=== PATIENT | female | born 1930 | race Caucasian/White ===

== ENCOUNTER → 2017-01-31 | Outpatient (CLI) | payer MEDICARE, OTHER | END | disposition home or self-care (01) | LOC: PCVCCLINIC 14:52 | PROVIDERS: ATTEND Internal Medicine | DX: I48.91 Unspecified atrial fibrillation (principal); I50.9 Heart failure, unspecified | CPT/HCPCS: 93279 ==

== ENCOUNTER → 2017-05-09 | Outpatient (CLI) | payer MEDICARE ==
--- NOTE | 2017-05-10 13:00 | PCVCIMAG ---
APPROVED REPORT Indications Stenosis Doppler Spectral Velocity Analysis PSV / EDVPSV / EDV ECA (R) 85 / 5 cm/sECA (L) 72 / 6 cm/s dICA (R) 63 / 19 cm/sdICA (L) 74 / 23 cm/s Jose (R) 113 / 21 cm/smICA (L) 70 / 21 cm/s pICA (R) 121 / 24 cm/spICA (L) 43 / 11 cm/s Bulb (R) 56 / 13 cm/sBulb (L) 46 / 14 cm/s dCCA (R) 56 / 12 cm/sdCCA (L) 71 / 13 cm/s mCCA (R) 78 / 14 cm/smCCA (L) 85 / 14 cm/s Vert (R) 56 / 6 cm/sVert (L) 70 / 19 cm/s ICA/CCA 1.50ICA/CCA 1.04 Basic Measurements Blood Pressure: Pulses: Right Left RightLeft Brachial(Sitting) 104/[id number]/60mmHgTemporal Real Time B-Mode Imaging Vert. (R)AntegradeVert. (L)Antegrade Findings The right carotid bulb has moderate heterogeneous plaque. The right proximal internal carotid artery shows <40% stenosis. The right common carotid artery shows no significant stenosis. The right external carotid artery shows no significant stenosis. The left carotid bulb has moderate heterogeneous plaque. The left proximal internal carotid artery shows <40% stenosis. The left common carotid artery shows no significant stenosis. The left external carotid artery shows no significant stenosis. Conclusion 1. Right internal carotid artery stenosis (<40%) 2. Left internal carotid artery stenosis (<40%) 3. Antegrade vertebral flow
--- NOTE | 2017-05-10 17:21 | PCVCIMAG ---
APPROVED REPORT Study performed: 05/09/2017 14:07:46 EXAM: Comprehensive 2D, Doppler, and color-flow Echocardiogram Patient Location: Echo lab Status: routine Other Information Study Quality: Adequate Indications Aortic Valve Disease Atrial Fibrillation Pacemaker 2D Dimensions LVEF(%): 82.42 (>50%) IVSd: 11.25 (7-11mm)LVOT Diam: 18.48 (18-24mm) LVDd: 40.26 mm PWd: 10.98 (7-11mm)Ascending Ao: 28.94 (22-36mm) LVDs: 19.86 (25-40mm) Left Atrium: 45.28 (27-40mm) Aortic Root: 17.72 mm LV Single Plane 4CH: 54.30 % LV Single Plane 2CH: 50.26 %[place] LVEF: 52.28 % Volumes Left Atrial Volume (Systole) Single Plane 4CH: 114.09 mLSingle Plane 2CH: 111.52 mL LA ESV Index: 78.00 mL/m2 Aortic Valve AoV Peak Leif.: 3.97 m/s AO Peak Gr.: 64.71 mmHgLVOT Max P.85 mmHg AO Mean Gr.: 36.49 mmHgLVOT Mean P.86 mmHg AO V2 Mean: 2.74 m/sLVOT Max V: 1.13 m/s AO V2 VTI: 90.90 cmLVOT Mean V: 0.96 m/s ZONIA (VTI): 0.86 [id number] V1 VTI: 29.08 cm ZONIA Vmax: 0.76 cm2 AI Vmax: 3.07 m/sSV (LVOT): 77.98 mL AI [place]: 2.96 m/s2 AI PHT: 300.66 ms Mitral Valve MV E Max Leif.: 1.21 m/s MV PHT: 29.65 ms MVA (PHT): 7.42 cm2 IVRT: 83.04 ms TDI E/Lateral E': 8.07E/Medial E': 15.13 Medial E' Leif.: 0.08 m/s Lateral E' Leif.: 0.15 m/s Pulmonary Valve PV Peak Leif.: 0.79 m/sPV Peak Gr.: 2.52 mmHg Tricuspid Valve TR Peak Leif.: 2.88 m/s TR Peak Gr.: 33.26 mmHg TV Vmax: 1.29 m/sPA Pressure: 48.00 mmHg Left Ventricle The left ventricle is normal size. There is normal LV segmental wall motion. Mild concentric left ventricular hypertrophy. Left ventricular systolic function is normal. The left ventricular ejection fraction is within the normal range. LVEF is 50-55%. This study is not technically sufficient to allow evaluation of the LV diastolic function due to atrial fibrillation. Right Ventricle The right ventricle is normal size. The right ventricular systolic function is normal. Atria Left atrium is severely dilated. Right atrium is severely dilated. Pacemaker lead is present in the right atrium. Aortic Valve Aortic valve is trileaflet with heavy calcification. There is moderate aortic stenosis and regurgitation. Moderate aortic regurgitation Severe aortic stenosis. Peak aortic valve gradient is 63mmHg and the mean gradient is 36.5 mmHg. Mitral Valve Moderate mitral annular calcification. The mitral valve leaflets are mildly thickened and calcified Moderate mitral regurgitation No evidence of mitral valve stenosis. Tricuspid Valve The tricuspid valve is normal in structure. Severe tricuspid regurgitation with a PA pressure of 48 mmHg. Pulmonic Valve The pulmonary valve is normal in structure. Moderate pulmonic regurgitation. Great Vessels The aortic root is normal in size. The ascending aorta is normal in size. IVC is normal in size and collapses with >50% inspiration The pulmonary artery is normal. Pericardium There is no pericardial effusion. There is no pleural effusion. <Conclusion> Left ventricular systolic function is normal. There is normal LV segmental wall motion. LVEF is 55-60%. Both atria are severely dilated. Aortic valve is trileaflet with heavy calcification. There is severe aortic stenosis and moderate regurgitation. Peak aortic valve gradient is 63mmHg and the mean gradient is 36.5 mmHg. Moderate mitral annular calcification and leaflets are mildly thickened and calcified Moderate mitral regurgitation Severe tricuspid regurgitation with a PA pressure of 48 mmHg. There is no pericardial effusion. Pacing wires in right heart
== END | disposition home or self-care (01) ==
LOC: PCVCIMAG 13:00
PROVIDERS: ATTEND Internal Medicine
DX: I35.1 Nonrheumatic aortic (valve) insufficiency (principal); I34.0 Nonrheumatic mitral (valve) insufficiency; I37.1 Nonrheumatic pulmonary valve insufficiency; I07.1 Rheumatic tricuspid insufficiency; I65.23 Occlusion and stenosis of bilateral carotid arteries; I48.2 Chronic atrial fibrillation; I25.10 Atherosclerotic heart disease of native coronary artery without angina pectoris; I50.32 Chronic diastolic (congestive) heart failure; I11.0 Hypertensive heart disease with heart failure; E78.5 Hyperlipidemia, unspecified; M19.90 Unspecified osteoarthritis, unspecified site; M81.0 Age-related osteoporosis without current pathological fracture; E03.9 Hypothyroidism, unspecified; Z95.0 Presence of cardiac pacemaker; Z79.01 Long term (current) use of anticoagulants; Z87.891 Personal history of nicotine dependence; Z79.82 Long term (current) use of aspirin; Z95.5 Presence of coronary angioplasty implant and graft
CPT/HCPCS: 80061; 93005; 93306; 93880; G0463

== ENCOUNTER → 2017-08-14 | Outpatient (CLI) | payer MEDICARE | END | disposition home or self-care (01) | LOC: PCVCCLINIC 15:17 | PROVIDERS: ATTEND Internal Medicine | DX: I48.2 Chronic atrial fibrillation (principal); I25.10 Atherosclerotic heart disease of native coronary artery without angina pectoris; I50.32 Chronic diastolic (congestive) heart failure; E78.5 Hyperlipidemia, unspecified; Z95.0 Presence of cardiac pacemaker; Z79.01 Long term (current) use of anticoagulants | CPT/HCPCS: 93279 ==

== ENCOUNTER → 2017-09-13 | Outpatient (CLI) | payer MEDICARE | END | disposition home or self-care (01) | LOC: PCVCCLINIC 11:09 | PROVIDERS: ATTEND Internal Medicine | DX: I48.2 Chronic atrial fibrillation (principal); I50.32 Chronic diastolic (congestive) heart failure; Q25.3 Supravalvular aortic stenosis; Z95.0 Presence of cardiac pacemaker | CPT/HCPCS: 93279 ==

== ENCOUNTER → 2017-10-31 | Outpatient (CLI) | payer MEDICARE | END | disposition home or self-care (01) | LOC: PCVCCLINIC 15:00 | PROVIDERS: ATTEND Internal Medicine | DX: I25.10 Atherosclerotic heart disease of native coronary artery without angina pectoris (principal); I50.32 Chronic diastolic (congestive) heart failure; I35.0 Nonrheumatic aortic (valve) stenosis; I48.2 Chronic atrial fibrillation; E78.5 Hyperlipidemia, unspecified; J47.9 Bronchiectasis, uncomplicated; Z79.01 Long term (current) use of anticoagulants; Z87.891 Personal history of nicotine dependence; Z79.82 Long term (current) use of aspirin; Z79.899 Other long term (current) drug therapy | CPT/HCPCS: 80061; 93005; G0463 ==

== ENCOUNTER → 2018-01-24 | Outpatient (CLI) | payer MEDICARE | END | disposition home or self-care (01) | LOC: PCVCCLINIC 11:00 | DX: I11.0 Hypertensive heart disease with heart failure (principal); I50.32 Chronic diastolic (congestive) heart failure; E03.9 Hypothyroidism, unspecified; J44.9 Chronic obstructive pulmonary disease, unspecified; I25.10 Atherosclerotic heart disease of native coronary artery without angina pectoris; I48.2 Chronic atrial fibrillation; E78.5 Hyperlipidemia, unspecified; Z79.01 Long term (current) use of anticoagulants; Z87.891 Personal history of nicotine dependence; Z95.0 Presence of cardiac pacemaker | CPT/HCPCS: 93279 ==

== ENCOUNTER → 2018-04-30 | Outpatient (CLI) | payer MEDICARE | END | disposition home or self-care (01) | LOC: PCVCCLINIC 15:35 | DX: I25.10 Atherosclerotic heart disease of native coronary artery without angina pectoris (principal); I50.32 Chronic diastolic (congestive) heart failure; I35.0 Nonrheumatic aortic (valve) stenosis; I48.2 Chronic atrial fibrillation; I65.23 Occlusion and stenosis of bilateral carotid arteries; E78.5 Hyperlipidemia, unspecified; J47.9 Bronchiectasis, uncomplicated; Z87.891 Personal history of nicotine dependence; Z79.82 Long term (current) use of aspirin; Z79.899 Other long term (current) drug therapy; Z88.8 Allergy status to other drugs, medicaments and biological substances | CPT/HCPCS: 80061; 93005; 93279; G0463 ==

== ENCOUNTER → 2018-10-29 | Outpatient (CLI) | payer MEDICARE ==
--- NOTE | 2018-10-29 14:32 | PCVCIMAG ---
APPROVED REPORT Study performed: 10/29/2018 13:09:14 EXAM: Comprehensive 2D, Doppler, and color-flow Echocardiogram Patient Location: Echo lab Status: routine BSA: 1.41 HR: 72 bpmBP: 116/64 mmHg Rhythm: Pacemaker Indications Atrial Fibrillation Pacemaker CAD severe aortic stenosis 2D Dimensions IVSd: 12.70 (7-11mm)LVOT Diam: 19.19 (18-24mm) LVDd: 39.24 mm PWd: 12.30 (7-11mm)Ascending Ao: 34.41 (22-36mm) LVDs: 28.12 (25-40mm) Left Atrium: 53.20 (27-40mm) Aortic Root: 32.93 mm Volumes Left Atrial Volume (Systole) Single Plane 4CH: 126.24 mLSingle Plane 2CH: 146.94 mL LA ESV Index: 98.00 mL/m2 Aortic Valve AoV Peak Leif.: 6.32 m/s AO Peak Gr.: 159.99 mmHgLVOT Max P.86 mmHg AO Mean Gr.: 87.65 mmHgLVOT Mean P.90 mmHg AO V2 Mean: 4.34 m/sLVOT Max V: 0.91 m/s AO V2 VTI: 159.69 cmLVOT Mean V: 0.65 m/s ZONIA (VTI): 0.38 [id number] V1 VTI: 20.99 cm ZONIA Vmax: 0.42 cm2 AI Vmax: 4.37 m/sSV (LVOT): 60.68 mL AI [place]: 3.77 m/s2 AI PHT: 335.86 ms Pulmonary Valve PV Peak Leif.: 1.05 m/sPV Peak Gr.: 4.38 mmHg Pulmonary Vein P Vein S: 0.27 m/s P Vein D: 0.37 m/s P Vein S/D Ratio: 0.73 Tricuspid Valve TR Peak Leif.: 2.77 m/s TR Peak Gr.: 30.66 mmHg Left Ventricle The left ventricle is normal size. There is normal LV segmental wall motion. Mild concentric left ventricular hypertrophy. Left ventricular systolic function is normal. The left ventricular ejection fraction is within the normal range. LVEF is 55%. This study is not technically sufficient to allow evaluation of the LV diastolic function due to atrial fibrillation. Right Ventricle Right ventricle is dilated. The right ventricular systolic function is normal. Atria Left atrium is severely dilated. Right atrium is severely dilated. Aortic Valve The aortic valve is severely calcified. Mild-moderate aortic regurgitation. There is critically severe valvular aortic stenosis. Calculated aortic valve area is .4 cm2 with maximum pressure gradient of 160 mmHg and mean pressure gradient of 88 mmHg. Mitral Valve Mild mitral annular calcification Moderate mitral regurgitation. No evidence of mitral valve stenosis. Tricuspid Valve The tricuspid valve is normal in structure. Severe tricuspid regurgitation with PAP of 46 mmHg. Pulmonic Valve The pulmonary valve is normal in structure. Mild to moderate pulmonic regurgitation. Great Vessels The aortic root is normal in size. IVC is normal in size and collapses >50% with inspiration. Pericardium There is no pericardial effusion. There is no pleural effusion. <Conclusion> Left ventricular systolic function is normal. There is normal LV segmental wall motion. LVEF 55%. Both atria are severely dilated. The aortic valve is severely calcified, critically stenotic. Moderate insufficiency Calculated aortic valve area is .4 cm2 with maximum pressure gradient of 160 mmHg and mean pressure gradient of 88 mmHg. Mild mitral annular calcification. Moderate mitral regurgitation. Severe tricuspid regurgitation with pulmonary artery pressure of 46 mmHg. There is no pericardial effusion.
--- NOTE | 2018-10-29 15:20 | PCVCIMAG ---
APPROVED REPORT Indications Stenosis Risk Factors CAD, Doppler Spectral Velocity Analysis PSV / EDVPSV / EDV ECA (R) 133 / 0 cm/sECA (L) 67 / 0 cm/s dICA (R) 86 / 17 cm/sdICA (L) 64 / 19 cm/s Jose (R) 80 / 12 cm/smICA (L) 77 / 19 cm/s pICA (R) 119 / 22 cm/spICA (L) 45 / 13 cm/s Bulb (R) 57 / 10 cm/sBulb (L) 63 / 14 cm/s dCCA (R) 43 / 12 cm/sdCCA (L) 46 / 10 cm/s mCCA (R) 78 / 10 cm/smCCA (L) 67 / 8 cm/s Vert (R) 39 / 6 cm/sVert (L) 58 / 14 cm/s ICA/CCA 2.77ICA/CCA 1.67 Basic Measurements Blood Pressure: Pulses: Right Left RightLeft Brachial(Sitting) 134/66ljIr454/70mmHgTemporal Real Time B-Mode Imaging Vert. (R)AntegradeVert. (L)Antegrade Findings The right carotid bulb has moderate calcified plaque. The right proximal internal carotid artery shows 40-50% stenosis. The right common carotid artery shows no significant stenosis. The right external carotid artery shows no significant stenosis. The left carotid bulb has mild calcified plaque. The left proximal internal carotid artery shows <40% stenosis. The left common carotid artery shows no significant stenosis. The left external carotid artery shows no significant stenosis. Conclusion 1. Right internal carotid artery stenosis (40-50%) 2. Left internal carotid artery stenosis (<40%) 3. Antegrade vertebral flow
== END | disposition home or self-care (01) ==
LOC: PCVCIMAG 13:12
PROVIDERS: ATTEND Internal Medicine
DX: I08.3 Combined rheumatic disorders of mitral, aortic and tricuspid valves (principal); I65.23 Occlusion and stenosis of bilateral carotid arteries; I48.2 Chronic atrial fibrillation; I25.10 Atherosclerotic heart disease of native coronary artery without angina pectoris; E78.5 Hyperlipidemia, unspecified; J47.9 Bronchiectasis, uncomplicated; I50.32 Chronic diastolic (congestive) heart failure; M19.90 Unspecified osteoarthritis, unspecified site; E78.00 Pure hypercholesterolemia, unspecified; M81.0 Age-related osteoporosis without current pathological fracture; Z95.0 Presence of cardiac pacemaker; Z87.891 Personal history of nicotine dependence; Z88.1 Allergy status to other antibiotic agents; Z79.82 Long term (current) use of aspirin; Z90.710 Acquired absence of both cervix and uterus
CPT/HCPCS: 36415; 80061; 93005; 93279; 93306; 93880; G0463

== ENCOUNTER → 2019-04-24 | Outpatient (CLI) | payer MEDICARE | END | disposition home or self-care (01) | LOC: PCVCCLINIC 11:20 | PROVIDERS: ATTEND Internal Medicine | DX: I48.2 Chronic atrial fibrillation (principal); I25.10 Atherosclerotic heart disease of native coronary artery without angina pectoris; I35.0 Nonrheumatic aortic (valve) stenosis; E03.9 Hypothyroidism, unspecified; E78.00 Pure hypercholesterolemia, unspecified; Z95.0 Presence of cardiac pacemaker | CPT/HCPCS: 93005; G0463 ==

== ENCOUNTER → 2019-07-03 | Outpatient (CLI) | payer MEDICARE | END | disposition home or self-care (01) | LOC: PCVCCLINIC 11:00 | PROVIDERS: ATTEND Internal Medicine | DX: I25.10 Atherosclerotic heart disease of native coronary artery without angina pectoris (principal); I48.2 Chronic atrial fibrillation; I50.32 Chronic diastolic (congestive) heart failure; I35.0 Nonrheumatic aortic (valve) stenosis; J42 Unspecified chronic bronchitis; E78.5 Hyperlipidemia, unspecified; R43.2 Parageusia; E03.9 Hypothyroidism, unspecified; Z87.891 Personal history of nicotine dependence; Z95.0 Presence of cardiac pacemaker | CPT/HCPCS: 36415; 93005; 93279; G0463 ==